=== PATIENT | female | born 2005 | race Caucasian/White ===

== ENCOUNTER 2024-03-03 19:40 | Emergency (ER) | payer OTHER, SELFPAY ==
--- NOTE | ~2024-03-03 | CT_ITS ---
EXAMINATION: CT brain wo con DATE: 03/03/2024 20:26 INDICATION: fall,LT FRONTAL HI,DIZZY-RESOLVED NOW . TECHNIQUE: Computed tomography (CT) of the head was performed without intravenous contrast. The mA wa s adjusted according to patient size. Iterative reconstruction technique was employed. The dose-lengt h product was 605.33 mGy-cm. COMPARISON: None. FINDINGS: No acute intracranial hemorrhage or extra-axial fluid collection. No hydrocephalus, mass, or herniation. No acute ischemic infarct. Unremarkable dural venous sinus attenuation. No acute osseous abnormality. Small left frontal laceration. The aerated spaces are clear. IMPRESSION: No acute intracranial process. Reviewed, dictated and finalized at location K.
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
[2024-03-03 19:42] VITALS: BP 113/90; PULSE 68; RESP 18; TEMP 36.6; O2SAT 100
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
--- NOTE | 2024-03-03 20:26 | PC.NURSE ---
patient transported to radiology via stretcher
[2024-03-03] MEDS: NEOMYCIN/POLYMYXIN/BACITRACIN OINTMENT PACKET 2 PACKET TOPICAL (21:15)
[2024-03-03 21:18] VITALS: BP 114/82; PULSE 70; RESP 18; O2SAT 100
== END 2024-03-03 21:18 | disposition home or self-care (01) ==
PROVIDERS: Emergency Provider Emergency Medicine
DX: S09.90XA Unspecified injury of head, initial encounter (principal); S01.01XA Laceration without foreign body of scalp, initial encounter; S81.011A Laceration without foreign body, right knee, initial encounter; V18.4XXA Pedal cycle driver injured in noncollision transport accident in traffic accident, initial encounter
CPT/HCPCS: 12001; 70450; 73562; 99284